=== PATIENT | female | born 1975 | race Caucasian/White ===

== ENCOUNTER 2019-03-21 15:06 | Emergency (ER) | payer OTHER ==
--- NOTE | 2019-03-21 15:13 | EDPHY ---
H & P Stated Complaint: abd pain Time Seen by Provider: 03/21/19 15:12 - Personal History Current Tetanus/Diphtheria Vaccine: Yes Current Tetanus Diphtheria and Acellular Pertussis (TDAP): Yes - Medical/Surgical History Hx Asthma: No Hx Chronic Respiratory Disease: No Hx Diabetes: No Hx Cardiac Disease: No Hx Renal Disease: No Hx Cirrhosis: No Hx Alcoholism: No Hx HIV/AIDS: No Hx Splenectomy or Spleen Trauma: No - Social History Smoking Status: Never smoked Constitutional: Initial Vital Signs Temperature (C) 37.1 C 03/21/19 15:09 Heart Rate 133 H 03/21/19 15:09 Respiratory Rate 16 03/21/19 15:09 Blood Pressure 129/89 H 03/21/19 15:09 O2 Sat (%) 95 03/21/19 15:09 O2 Delivery Mode Room Air Allergies/Adverse Reactions: Penicillins Allergy (Unknown, Verified 05/25/10 15:42) Sulfa (Sulfonamide Antibiotics) Allergy (Unknown, Verified 05/25/10 15:42) amoxicillin Allergy (Verified 03/21/19 15:09) Home Medications: Medication Instructions Recorded Claritin 03/21/19 Flonase Nasal [place] 03/21/19 busPIRone 03/21/19 Medical Decision Making - Diagnostics Imaging Results: Imaging Impressions Abdomen Ultrasound 03/21/19 15:19 Impression: 1. Cholelithiasis, with no secondary evidence of cholecystitis. 2. There is dilatation of the common bile duct, but this tapers normally at the ampulla with no choledocholithiasis observed. Findings were discussed with the biomedical engineering supervisor for Vasyl Chni MD at 16:12 , on 03/21/2019. Imaging: Discussed imaging studies w/ call taker Radiologist, I viewed and interpreted images myself ED Course/Re-evaluation: CHIEF COMPLAINT: Abdominal pain, bloating HISTORY OF PRESENT ILLNESS: The patient is a 43 y/o female complaining of worsening abdominal pain and bloating onset Wednesday, 3 days ago. The patient initially developed diffuse intermittent abdominal pain that last for 2 days. She then developed more acute and intense pain today that makes it difficult to take a deep breath. She cannot specify a certain area with more pain. She denies history of abdominal surgeries. No nausea or vomiting. No fever, headache, body aches, lightheadedness, chest pain, heart palpitations, shortness of breath, cough, urinary or bowel complaints, numbness, paresthesias. REVIEW OF SYSTEMS: A comprehensive 10 system review of systems is otherwise negative aside from elements mentioned in the history of present illness and medical decision making. PHYSICAL EXAM: HR, BP, O2 Sat, RR. Temp noted General Appearance: Alert, well hydrated, appropriate, and non-toxic appearing. Head: Atraumatic without scalp tenderness or obvious injury Eyes: Pupils equal, round, reactive to light and accommodation, EOMI, no trauma , no injection. Ears: Clear bilaterally, no perforation, normal landmarks Nose: Atraumatic, no rhinorrhea, clear. Throat: There is no erythema or exudates, no lesions, normal tonsils, mucus membranes moist. Neck: Supple, 2+ carotid upstroke, nontender, no lymphadenopathy. Respiratory: No retractions, no distress, no wheezes, and no accessory muscle use. Lungs are clear to auscultation bilaterally. Cardiovascular: Regular rate and rhythm, no murmurs, rubs, or gallops. Bilateral carotid, radial, dorsalis pedis, and posterior tibial pulses intact. Good capillary refill all extremities. Gastrointestinal: Positive Stone's point. Abdomen is soft, non-distended, no masses, no rebound, no guarding, no peritoneal signs. Musculoskeletal: Normal active ROM of all extremities, atraumatic. Neurological: Alert, appropriate, and interactive. The patient has normal DTRs and non-focal cranial nerves, motor, sensory, and cerebellar exam. Skin: No rashes, good turgor, no nodules on palpation. Past medical history: Denies Past surgical history: Denies Family history: Denies Social history: Lives in [place], , works for [employer] DIAGNOSTICS/PROCEDURES/CRITICAL CARE TIME: Abdominal US: Gallstones in gallbladder. The common bile duct is plump but it tapers. No choledocholithiasis. DIFFERENTIAL DIAGNOSIS: The differential diagnosis for the patient's abdominal pain included but was not limited to ovarian cyst, pelvic inflammatory disease, ovarian torsion, urinary tract infection, ectopic , cholecystitis, and appendicitis. MEDICAL DECISION MAKING: The patient is a 43 y/o female presenting with worsening abdominal pain and bloating onset Wednesday, 3 days ago.On exam she has positive Stone's point tenderness consistent with cholecystitis. Labs and abdominal US ordered; 1L IV NS, 1mg IV Dilaudid, 30mg IV Toradol, and 4mg IV Zofran administered. 1614: I spoke with Dr. Fraga, radiologist, who reports that the patient has gallstones in her gallbladder. The common bile duct is plump but it tapers. No choledocholithiasis. I also reviewed patient's labs which are unremarkable. 1632: Reassessed patient and discussed imaging and laboratory findings. She is feeling better after medications. I have offered her admission for a cholecystectomy. She would like to talk to her , who is a physician, as to if she would like to be admitted or discharged home. Spoke with Ricky Hudson this patient's who is a local staff scientist and colleague of [facility]. He is in agreement her symptoms are completely gone if she gets worse she will return otherwise they will follow up with the [facility] surgeon as an outpatient. I have advised her to follow up with a general surgeon regarding the gallstones. Return precautions provided; patient is comfortable with this plan. - Data Points Laboratory Results: Laboratory Results 03/21/19 15:31 03/21/19 15:31 03/21/19 03/21/19 03/21/19 15:41 15:31 15:31 WBC RBC Hgb POC Hgb 14.3 gm/dL gm/dL (12.6-16.3) Hct POC Hct 42 % % (38-47) MCV MCH MCHC RDW Plt Count MPV Neut % (Auto) Lymph % (Auto) [place] % (Auto) Eos % (Auto) Baso % (Auto) Nucleat RBC Rel Count Absolute Neuts (auto) Absolute Lymphs (auto) Absolute Monos (auto) Absolute Eos (auto) Absolute Basos (auto) Absolute Nucleated RBC Immature Gran % Immature Gran # POC Sodium 142 mEq/L mEq/L (135-145) Sodium 136 mEq/L mEq/L (135-145) POC Potassium 3.5 mEq/L mEq/L (3.3-5.0) Potassium 3.8 mEq/L mEq/L (3.5-5.2) POC Chloride 105 mEq/L mEq/L (97-110) Chloride 103 mEq/L mEq/L (97-110) Carbon Dioxide 21 mEq/l L mEq/l (22-31) POC Total CO2 23 mEq/L mEq/L (22-31) Anion Gap 12 mEq/L mEq/L (6-14) POC BUN 8 mg/dL mg/dL (7-23) BUN 9 mg/dL mg/dL (7-23) Creatinine 0.6 mg/dL mg/dL (0.6-1.0) POC Creatinine 0.7 mg/dL mg/dL (0.6-1.0) Estimated GFR > 60 Glucose 104 mg/dL H mg/dL (70-100) POC Glucose 107 mg/dL H mg/dL (70-100) Calcium 9.3 mg/dL mg/dL (8.5-10.4) Total Bilirubin 0.4 mg/dL mg/dL (0.1-1.4) Conjugated Bilirubin 0.2 mg/dL mg/dL (0.0-0.5) Unconjugated Bilirubin 0.2 mg/dL mg/dL (0.0-1.1) AST 29 IU/L IU/L (14-46) ALT 38 IU/L IU/L (9-52) Alkaline Phosphatase 77 IU/L IU/L (38-126) Total Protein 7.4 g/dL g/dL (6.3-8.2) Albumin 4.6 g/dL g/dL (3.5-5.0) Lipase 62 IU/L IU/L (23-300) Beta HCG, Qual NEGATIVE 03/21/19 15:31 WBC 7.55 10^3/uL 10^3/uL (3.80-9.50) RBC 4.70 10^6/uL 10^6/uL (4.18-5.33) Hgb 14.0 g/dL g/dL (12.6-16.3) POC Hgb Hct 40.0 % % (38.0-47.0) POC Hct MCV 85.1 fL fL (81.5-99.8) MCH 29.8 pg pg (27.9-34.1) MCHC 35.0 g/dL g/dL (32.4-36.7) RDW 11.3 % L % (11.5-15.2) Plt Count 250 10^3/uL 10^3/uL (150-400) MPV 10.3 fL fL (8.7-11.7) Neut % (Auto) 69.0 % % (39.3-74.2) Lymph % (Auto) 19.9 % % (15.0-45.0) [place] % (Auto) 10.3 % % (4.5-13.0) Eos % (Auto) 0.0 % L % (0.6-7.6) Baso % (Auto) 0.5 % % (0.3-1.7) Nucleat RBC Rel Count 0.0 % % (0.0-0.2) Absolute Neuts (auto) 5.21 10^3/uL 10^3/uL (1.70-6.50) Absolute Lymphs (auto) 1.50 10^3/uL 10^3/uL (1.00-3.00) Absolute Monos (auto) 0.78 10^3/uL 10^3/uL (0.30-0.80) Absolute Eos (auto) 0.00 10^3/uL L 10^3/uL (0.03-0.40) Absolute Basos (auto) 0.04 10^3/uL 10^3/uL (0.02-0.10) Absolute Nucleated RBC 0.00 10^3/uL 10^3/uL (0-0.01) Immature Gran % 0.3 % % (0.0-1.1) Immature Gran # 0.02 10^3/uL 10^3/uL (0.00-0.10) POC Sodium Sodium POC Potassium Potassium POC Chloride Chloride Carbon Dioxide POC Total CO2 Anion Gap POC BUN BUN Creatinine POC Creatinine Estimated GFR Glucose POC Glucose Calcium Total Bilirubin Conjugated Bilirubin Unconjugated Bilirubin AST ALT Alkaline Phosphatase Total Protein Albumin Lipase Beta HCG, Qual Medications Given: Discontinued Medications Hydromorphone HCl (Dilaudid) 1 mg IVP EDNOW ONE Stop: 03/21/19 15: Last Admin: 03/21/19 15:26 Dose: 1 mg Sodium Chloride (Ns) 1,000 mls @ 0 mls/hr IV EDNOW ONE; Wide Open PRN Reason: Protocol Stop: 03/21/19 15:19 Last Admin: 03/21/19 15:26 Dose: 1,000 mls Ketorolac Tromethamine (Toradol) 30 mg IVP EDNOW ONE Stop: 03/21/19 15:19 Last Admin: 03/21/19 15:26 Dose: 30 mg Ondansetron HCl (Zofran) 4 mg IVP EDNOW ONE Stop: 03/21/19 15:19 Last Admin: 03/21/19 15:26 Dose: 4 mg Point of Care Test Results: Chemistry 03/21/19 15:41 POC Sodium 142 mEq/L mEq/L (135-145) POC Potassium 3.5 mEq/L mEq/L (3.3-5.0) POC Chloride 105 mEq/L mEq/L (97-110) POC Total CO2 23 mEq/L mEq/L (22-31) POC BUN 8 mg/dL mg/dL (7-23) POC Creatinine 0.7 mg/dL mg/dL (0.6-1.0) POC Glucose 107 mg/dL H mg/dL (70-100) ISTAT H&H 03/21/19 15:41 POC Hgb 14.3 gm/dL gm/dL (12.6-16.3) POC Hct 42 % % (38-47) Departure - Departure Disposition: Home, Routine, Self-Care Clinical Impression: Gallstones Condition: Good Instructions: Gallstones (ED) Additional Instructions: 1. There are gallstones present in your gallbladder. 2. Follow up with a general surgeon within the next week. 3. Return to the Emergency Department for fever, chest pain, shortness of breath , increasing pain or other worsening of condition. Referrals: Gladys Gilman MD [Primary Care Provider] - As per Instructions Devin Osuna MD [Medical Doctor] - As per Instructions Report Scribed for: Vasyl Chin Report Scribed by: Lolly Posey Date of Report: 03/21/19 Time of Report: 15:16
[2019-03-21] MEDS ORDERED: KETOROLAC 30 MG/1 ML SDV IVP ONE (15:18)
[2019-03-21] MEDS ORDERED: ONDANSETRON 4 MG/2 ML VIAL IVP ONE (15:18)
[2019-03-21] MEDS ORDERED: NS 1,000 ML IV ONE (15:18)
[2019-03-21] MEDS ORDERED: HYDROmorphONE/DILAUDID 2 MG/ML INJ IVP ONE (15:18)
[2019-03-21 15:44] LABS: PLATELET COUNT 250 10^3/uL (150-400)
[2019-03-21 17:46] VITALS: BP 119/83
== END 2019-03-21 17:46 | disposition home or self-care (01) ==
DX: K80.20 Calculus of gallbladder without cholecystitis without obstruction (principal); E86.9 Volume depletion, unspecified
CPT/HCPCS: 82435-PO; 82565-PO; 82947-PO; 84132-PO; 84295-PO; 84520-PO; 85014-ER; 96374; J1170; J1885; J2405

== ENCOUNTER 2019-03-22 08:29 | Day surgery (SDC) | payer OTHER ==
[2019-03-22] MEDS ORDERED: cefOXitin SODIUM 2 GM in NS 100 ML IV ONE (08:53)
[2019-03-22] MEDS ORDERED: LR 1,000 ML IV ONE (08:53)
[2019-03-22] MEDS ORDERED: BUPIVACAINE 0.5% 30 ML SDV ONE (10:08)
[2019-03-22] MEDS ORDERED: MIDAZOLAM 2 MG/2 ML VIAL ONE (10:18)
[2019-03-22] MEDS ORDERED: MIDAZOLAM 2 MG/2 ML VIAL IVP ONE (10:19)
[2019-03-22] MEDS ORDERED: ACETAMINOPHEN 500 MG TAB PO PRN (10:20)
[2019-03-22] MEDS ORDERED: LR 500 ML IV PRN (10:20)
[2019-03-22] MEDS ORDERED: ONDANSETRON 4 MG/2 ML VIAL IVP PRN (10:20)
[2019-03-22] MEDS ORDERED: MEPERIDINE 25 MG/0.5 ML AMP IVP PRN (10:20)
[2019-03-22] MEDS ORDERED: NALOXONE HCL 0.4 MG/ML INJ IVP PRN (10:20)
[2019-03-22] MEDS ORDERED: HYDROCODONE/APAP 5/325 TAB PO PRN (10:20)
[2019-03-22] MEDS ORDERED: fentaNYL 100 MCG/2 ML INJ IVP PRN (10:20)
[2019-03-22] MEDS ORDERED: PROMETHAZINE HCL 25 MG/ML INJ IVP PRN (10:20)
--- NOTE | 2019-03-22 10:20 | PDANEPAE ---
ANE Past Medical History - Cardiovascular History Hx Hypertension: No Hx Arrhythmias: No Hx Chest Pain: No Hx Coronary Artery / Peripheral Vascular Disease: No Hx CHF / Valvular Disease: No Hx Palpitations: No - Pulmonary History Hx COPD: No Hx Asthma/Reactive Airway Disease: No Hx Recent Upper Respiratory Infection: No Hx Oxygen in Use at Home: No Hx Sleep Apnea: No Sleep Apnea Screening Result - Last Documented: Negative - Neurologic History Hx Cerebrovascular Accident: No Hx Seizures: No Hx Dementia: No - Endocrine History Hx Diabetes: No Obesity: no - Renal History Hx Renal Disorders: No - Liver History Hx Hepatic Disorders: No - Neurological & Psychiatric Hx Hx Neurological and Psychiatric Disorders: Yes Neurological / Psychiatric History Comment: ANXIETY - Cancer History Hx Cancer: No - Congenital Disorder History Hx Congenital Disorders: No - GI History GERD: no Hx Gastrointestinal Disorders: No - Other Health History Other Health History: NONE - Chronic Pain History Chronic Pain: No - Surgical History Prior Surgeries: NONE ANE Review of Systems Review of Systems: - Exercise capacity METS (RN): 4 METS ANE Patient History - Allergies Allergies/Adverse Reactions: Penicillins Allergy (Unknown, Verified 05/25/10 15:42) Sulfa (Sulfonamide Antibiotics) Allergy (Unknown, Verified 05/25/10 15:42) amoxicillin Allergy (Verified 03/21/19 15:09) - Home Medications Home medications: home medication list seen and reviewed Home Medications: Claritin 1 tab PO PRN 03/21/19 [Last Taken Unknown] Flonase Nasal [place] PRN 03/21/19 [Last Taken 03/17/19] busPIRone PO BID 03/21/19 [Last Taken 03/21/19 19:00] - NPO status NPO Status: no food or drink >8 hours NPO Since - Liquids (Date): 03/21/19 NPO Since - Liquids (Time): 21:00 NPO Since - Solids (Date): 03/21/19 NPO Since - Solids (Time): 21:00 - Anes Hx Anes Hx: no prior problems - Smoking Hx Smoking Status: Never smoked - Family Anes Hx Family Hx Anesthesia Complications: NONE ANE Labs/Vital Signs - Vital Signs Blood Pressure: 96/64 Heart Rate: 78 Respiratory Rate: 9 O2 Sat (%): 98 Height: 157.48 cm Weight: 54.431 kg ANE Physical Exam - Airway Neck exam: FROM Mallampati Score: Class 1 Mouth exam: normal dental/mouth exam - Pulmonary Pulmonary: no respiratory distress, no rales or rhonchi, clear to auscultation - Cardiovascular Cardiovascular: regular rate and rhythym, no murmur, rub, or gallop - ASA Status ASA Status: II ANE Anesthesia Plan Anesthesia Plan: general endotracheal anesthesia
[2019-03-22] MEDS ORDERED: fentaNYL 100 MCG/2 ML INJ ONE (10:27)
[2019-03-22] MEDS ORDERED: PROPOFOL 200 MG/20 ML VIAL ONE (10:27)
[2019-03-22] MEDS ORDERED: KETOROLAC 30 MG/1 ML SDV ONE (10:30)
[2019-03-22] MEDS ORDERED: ONDANSETRON 4 MG/2 ML VIAL ONE (10:30)
[2019-03-22] MEDS ORDERED: ROCURONIUM 50 MG/5 ML VIAL ONE (10:30)
[2019-03-22] MEDS ORDERED: DEXAMETHASONE 4 MG/ML VIAL ONE ×2 (10:30)
[2019-03-22] MEDS ORDERED: LIDOCAINE 2% 2 ML INJ ONE ×2 (10:30→10:45)
[2019-03-22] MEDS ORDERED: NEOSTIGMINE METHYLSULFATE 10 MG/10 ML MDV ONE (11:25)
[2019-03-22] MEDS ORDERED: GLYCOPYRROLATE 0.2 MG/1 ML VIAL ONE (11:25)
--- NOTE | 2019-03-22 11:41 | POSTOPPROG ---
Post Op Note Date of Operation: 03/22/19 Surgeon: Anup Thurston Anesthesiologist: Dr. Marin Anesthesia: GET(General Endotracheal) Pre-op Diagnosis: Cholecystitis Post-op Diagnosis: same Procedure: lap césar Inf/Abcess present in the surg proc area at time of surgery?: No EBL: Minimal
--- NOTE | 2019-03-22 11:42 | POSTANESTH ---
Post Anesthetic Evaluation Cardiovascular Status: Normal, Stable, Similar to Pre-Op Cond Respiratory Status: Normal, Stable, Similar to Pre-op Cond. Level of Consciousness/Mental Status: Can Participate in Eval, Moderately Sleepy Pain Control: Adequate, Prn Tx Ordered Nausea/Vomiting Control: Adequate, Prn Tx Ordered Complications Possibly Related to Anesthesia: None Noted
[2019-03-22] MEDS ORDERED: HYDROCODONE/APAP 5/325 TAB ONE (12:20)
[2019-03-22 12:55] VITALS: BP 111/68
--- NOTE | 2019-03-22 13:23 | GOP ---
[f rep st] OPERATIVE REPORT DATE OF OPERATION: 03/22/2019 SURGEON: Fernando Thurston MD ANESTHESIA: General endotracheal anesthesia. ANESTHESIOLOGIST: Dr Marin. PREOPERATIVE DIAGNOSIS: Cholecystitis. POSTOPERATIVE DIAGNOSIS: Cholecystitis. PROCEDURE PERFORMED: Laparoscopic cholecystectomy. FINDINGS: Patient had small stones with [id number] inflammation of gallbladder. No other lesi ons were identified. ESTIMATED BLOOD LOSS: 20 cc. INDICATIONS: A 43-year-old female with a history of abdominal pain. Ultrasound demonstrated gallsto becky. Risks and benefits of the procedure were discussed with the patient and family. Their question s were answered, they wish to proceed. DESCRIPTION OF PROCEDURE: The patient was in the supine position. After the induction of adequate g eneral endotracheal anesthesia, the patient was prepped and draped in the standard surgical fashion. The supraumbilical area was infiltrated with 0.5% Marcaine for local anesthesia. A 5-mm incision wa s made and the abdominal wall was elevated. A Veress needle was inserted and after noting proper pre ssures, the abdomen was insufflated with carbon dioxide. A 5-mm trocar was passed and the camera foll owed. There was no apparent damage with trocar placement. Three more ports were placed; two 5-mm po rts in the right subcostal area, and one 11-mm port in the subxiphoid area. These were all placed du ring direct vision after injecting 0.5% Marcaine for local anesthesia. The gallbladder was then grasped and elevated. Adhesions were taken down using blunt dissection and cautery. The cystic structures were carefully dissected in a similar fashion. The cystic duct and c ystic artery were clearly identified. In addition, the subhepatic space was dissected. Once this cri tical view was obtained, the cystic duct and cystic artery were clipped and transected with scissors. The gallbladder was then elevated off the liver bed using cautery and blunt dissection. It was wit hdrawn through the subxiphoid port. The abdomen was then inspected and good hemostasis was noted. The fascia at the 11-mm port site was closed using 0 Vicryl in an interrupted fashion. All trocars were removed under direct vision, and t he pneumoperitoneum was allowed to escape. The wounds were thoroughly irrigated and the skin was manolo sed with 5-0 Monocryl in a subcuticular stitch. Needle and sponge counts were correct. The wounds w ere sterilely dressed. The patient was extubated and taken to the post-anesthesia care unit in stabl e condition. COMPLICATIONS: None. DRAINS: None. /[id number]/MODL
== END 2019-03-22 13:13 | disposition home or self-care (01) ==
LOC: FSGY 08:29
PROVIDERS: ATTEND Surgery
PROC: 0FT44ZZ Resection of Gallbladder, Percutaneous Endoscopic Approach (ICD-10-PCS; principal; 2019-03-22 11:00)
DX: K80.12 Calculus of gallbladder with acute and chronic cholecystitis without obstruction (principal)
CPT/HCPCS: J0694; J1100; J1885; J2250; J2405; J2704; J3010